=== PATIENT | male | born 1995 | race African-American/Black ===

== ENCOUNTER 2019-08-20 12:31 | Emergency (ER) | payer SELFPAY ==
[~2019-08-20] VITALS: Ht 182.9 cm; Wt 68.0 kg
[2019-08-20 18:35] VITALS: BP 106/73
== END 2019-08-20 18:40 | disposition home or self-care (01) ==
LOC: ER 12:31
DX: F10.129 Alcohol abuse with intoxication, unspecified (principal); Y90.0 Blood alcohol level of less than 20 mg/100 ml
CPT/HCPCS: 82962; 99283